=== PATIENT | male | born 1975 | race Two or more races ===

== ENCOUNTER 2021-01-04 11:02 | Emergency (ER) | payer OTHER ==
[~2021-01-04] VITALS: Ht 167.6 cm; Wt 85.0 kg
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
--- NOTE | 2021-01-04 11:25 | NUR ---
PT TRANSPORTED TO CT.
--- NOTE | 2021-01-04 11:54 | NUR ---
SHERIFF JOHN AT BEDSIDE OBTAINING STATEMENT FROM PT.
--- NOTE | 2021-01-04 12:40 | NUR ---
AWAITING CT SCAN.
--- NOTE | 2021-01-04 12:44 | NUR ---
PT TRANSPORTED TO CT.
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
[2021-01-04] MEDS ORDERED: FLUORESCEIN OPHTHALMIC 1 MG STRIP ONE (13:00)
[2021-01-04] MEDS ORDERED: PROPARACAINE OPHTH 0.5%, 15ML ONE (13:00)
--- NOTE | 2021-01-04 13:03 | NUR ---
DR. MOURA AT BEDSIDE.
[2021-01-04 13:38] VITALS: BP 134/83
== END 2021-01-04 13:40 | disposition home or self-care (01) ==
LOC: ED 12:15
DX: S06.0X0A Concussion without loss of consciousness, initial encounter (principal); S00.93XA Contusion of unspecified part of head, initial encounter; S40.011A Contusion of right shoulder, initial encounter; S20.211A Contusion of right front wall of thorax, initial encounter; S20.221A Contusion of right back wall of thorax, initial encounter; R00.0 Tachycardia, unspecified; Y04.8XXA Assault by other bodily force, initial encounter; Y93.89 Activity, other specified; Y92.69 Other specified industrial and construction area as the place of occurrence of the external cause; Y99.0 Civilian activity done for income or pay
CPT/HCPCS: 70450; 99284